=== PATIENT | female | born 1945 | race Two or more races ===

== ENCOUNTER 2016-04-21 15:18 | Emergency (ER) | payer OTHER ==
[~2016-04-21] VITALS: Ht 142.2 cm; Wt 67.5 kg
[2016-04-21 17:19] LABS: HEMATOCRIT 39.3 % (36.0-46.0); MCH 30.3 PG (29.0-34.0); MCHC 33.1 G/DL (30.0-36.0); MCV 91.6 FL (83-99); MEAN PLAT.VOLUME 9.6 uM^3 (9.5-12.4); PLATELET COUNT 313 K/uL (156-360); RBC DIS.WIDTH-CV 13.2 % (11.8-14.6); RBC DIS.WIDTH-SD 43.1 % (39-53); RED BLOOD COUNT 4.29 M/uL (3.80-5.20)
[2016-04-21 17:31] LABS: CHLORIDE 104 mEq/L (99-109); POTASSIUM 4.1 mEq/L (3.7-5.4)
[2016-04-21 17:32] LABS: SODIUM 142 mEq/L (136-147)
[2016-04-21 17:33] LABS: GLUCOSE 138 mg/dL (70-99)
[2016-04-21 17:35] LABS: ANION GAP 13 MEQ/L (2-14)
[2016-04-21 17:38] LABS: UREA NITROGEN (BUN) 13 mg/dL (9-23)
[2016-04-21 17:39] LABS: GFR ESTIMATE (CALCULATED) > 59 mL/min/
[2016-04-21] MEDS ORDERED: NIFEDIPINE ER30 MG PO (17:40)
[2016-04-21 17:43] LABS: TROP-I INTERPRETATION NEGATIVE; TROPONIN-I < 0.01 ng/mL (0.0-0.30)
[2016-04-21] MEDS ORDERED: ATARAX,VISTARIL25 MG PO (18:31)
[2016-04-21] MEDS ORDERED: HYDROCHLOROTHIA25 MG PO (18:31)
[2016-04-21] MEDS ORDERED: PROCARDIA XL30 MG PO (18:31)
[2016-04-21] MEDS ORDERED: LO-DOSE ASPIRIN81 M2 PO (18:31)
[2016-04-21 19:43] VITALS: BP 160/68
== END 2016-04-21 19:44 | disposition home or self-care (01) ==
LOC: EME 15:18
DX: J02.9 Acute pharyngitis, unspecified (principal); I10 Essential (primary) hypertension; F41.9 Anxiety disorder, unspecified; F43.9 Reaction to severe stress, unspecified; Z79.82 Long term (current) use of aspirin
CPT/HCPCS: 71020; 80048; 84484; 85027; 93005; 99281; 99284

== ENCOUNTER 2016-04-29 15:06 | Emergency (ER) | payer OTHER ==
[~2016-04-29] VITALS: Ht 160 cm; Wt 87.0 kg
[~2016-04-29 15:06] MED LIST: ATARAX,VISTARIL25 MG PO; HYDROCHLOROTHIA25 MG PO; LO-DOSE ASPIRIN81 M2 PO; NIFEDIPINE ER30 MG PO; PROCARDIA XL30 MG PO
[2016-04-29 16:46] LABS: HEMATOCRIT 41.8 % (36.0-46.0); MCH 29.7 PG (29.0-34.0); MCHC 32.5 G/DL (30.0-36.0); MCV 91.3 FL (83-99); MEAN PLAT.VOLUME 9.1 uM^3 (9.5-12.4); PLATELET COUNT 337 K/uL (156-360); RBC DIS.WIDTH-CV 12.9 % (11.8-14.6); RBC DIS.WIDTH-SD 42.3 % (39-53); RED BLOOD COUNT 4.58 M/uL (3.80-5.20); WHITE BLOOD COUNT 6.6 K/uL (4.1-10.2)
[2016-04-29 16:54] LABS: CHLORIDE 108 mEq/L (99-109); POTASSIUM 4.3 mEq/L (3.7-5.4); SODIUM 145 mEq/L (136-147)
[2016-04-29 16:57] LABS: GLUCOSE 99 mg/dL (70-99)
[2016-04-29 16:58] LABS: ANION GAP 14 MEQ/L (2-14)
[2016-04-29 16:59] LABS: TOTAL BILIRUBIN 0.2 mg/dL (0.0-1.0)
[2016-04-29 17:00] LABS: ALKALINE PHOSPHATASE 94 IU/L (3-129); GFR ESTIMATE (CALCULATED) > 59 mL/min/
[2016-04-29 17:01] LABS: UREA NITROGEN (BUN) 9 mg/dL (9-23)
[2016-04-29 17:07] LABS: TROP-I INTERPRETATION NEGATIVE; TROPONIN-I < 0.01 ng/mL (0.0-0.30)
[2016-04-29] MEDS ORDERED: LEVAQUIN750 MG PO (18:54)
[2016-04-29 19:08] VITALS: BP 141/79
== END 2016-04-29 19:09 | disposition home or self-care (01) ==
LOC: EME 15:06
PROVIDERS: Nurse Practitioner Family
DX: J18.9 Pneumonia, unspecified organism (principal); R51 Headache; I10 Essential (primary) hypertension
CPT/HCPCS: 71020; 80053; 83880; 84484; 85027; 87040; 93005; 99281; 99284